=== PATIENT | male | born 1940 | race Caucasian/White ===

== ENCOUNTER 2016-07-11 14:29 | Emergency (ER) | payer OTHER ==
[~2016-07-11] VITALS: Ht 193 cm; Wt 102.1 kg
--- NOTE | 2016-07-11 15:17 | ED GENERAL ADULT ---
History of Present Illness General Chief Complaint: Lower Extremity Problems Stated Complaint: RT LEG DVT Source: patient, family, old records Exam Limitations: no limitations Vital Signs & Intake/Output Vital Signs & Intake/Output Vital Signs Date Time Temp Pulse Resp B/P Pulse O2 O2 Flow FiO2 Ox Delivery Rate 07/12 1006 54 20 128/76 96 Room Air 07/12 0905 54 18 136/77 98 07/12 0616 98.6 55 20 128/75 95 Room Air 07/12 0500 59 16 128/88 96 07/12 0300 96.7 56 18 136/86 96 07/12 0030 97.5 58 18 131/57 96 Room Air 07/11 2220 98.3 57 16 131/72 95 ED Intake and Output 07/12 0000 07/11 1200 Intake Total 0 Output Total Balance 0 Intake, Oral 0 Patient 225 lb Weight Reconcile Medications Amlodipine Besylate 10 MG TABLET 1 TAB PO DAILY HEART (Reported) Aspirin (Aspirin*) 81 MG TAB.CHEW 1 TAB PO DAILY HEART HEALTH (Reported) Ezetimibe (Zetia) 10 MG TABLET 1 TAB PO DAILY CHOLESTEROL (Reported) Famotidine 20 MG TABLET 1 TAB PO BID GI (Reported) Labetalol HCl 200 MG TABLET 1 TAB PO BID HEART (Reported) Lisinopril 40 MG TABLET 1 TAB PO DAILY HEART (Reported) Lovastatin 10 MG TABLET 1 TAB PO DAILY UNKNOWN (Reported) Olmesartan/Hydrochlorothiazide (Benicar Hct 40-25 MG Tablet) 40 MG-25 MG TABLET 1 TAB PO DAILY HEART (Reported) [place]field-3 Acid Ethyl Esters 1 GRAM CAPSULE 1 CAP PO DAILY SUPPLEMENT (Reported) Sildenafil Citrate (Viagra) 100 MG TABLET 1 TAB PO DAILY NEEDED PRN ED ( Reported) 1 hour before sexual activity Triamcinolone Acetonide 0.5 % CREAM..G. 1 SIMÓN TOP TID UNKNOWN (Reported) apply to affected area(s) Triage Note: PT HAD A STENT AT [facility] AND HAD A BLEED IN HIS HEAD. PT FELL May INJURING HIS RIGHT LOWER EXT. PT DENIES PAIN IN THE AREA HOWEVER HE DOES HAVE SWELLING. PT WAS SENT IN BY DR. NÚÑEZ TO CHECK FOR DVT. NIYA Triage Nurses Notes Reviewed? yes HPI: Patient had outpatient ultrasound performed today which showed a DVT in his right femoral down was right popliteal. Back in April patient had a PTCA with stent and the next morning he had an intracerebral hemorrhage while on anticoagulation. Patient was transferred to the neurosurgical ICU. Patient's symptoms resolved on their own and he did not require surgery. Patient has been on aspirin 81 mg since then. Patient states that he had a stent also in 2002 and he required a units of blood after a bleed while on Integrilin. Patient states that he tripped over the sidewalk and twisted his right ankle approximately one month ago and his right ankle was swollen since then. Patient states that the swelling then gradually spread up his leg which led him to see his primary care physician who ordered the ultrasound. he denies any chest pain or shortness of breath. (MARY DANIELSON,ANGLE Carrillo) Allergies Coded Allergies: STATINS ("MUSCLES FEEL LIKE JELLY" - STATINS 02/22/13) clopidogrel (From PLAVIX) (HEMORRHAGE 07/12/16) eptifibatide (UNKNOWN 07/11/16) molindone (UNKNOWN 07/11/16) nalbuphine (UNKNOWN 07/11/16) ticagrelor (From BRILINTA) (HEMMORAGE 07/12/16) (VITA AYALA DO) Past History Travel History Traveled to [place] past 21 day No Medical History Any Pertinent Medical History? see below for history Cardiovascular: CAD, hypertension, hyperlipidemia, STENTS Gastrointestinal: GERD Pneumonia Vaccine: 02/03/08 Surgical History Surgical History: non-contributory Psychosocial History Who do you live with Spouse Services at Home None What is your primary language Uzbek Tobacco Use: Never used ETOH Use: occasional use Illicit Drug Use: denies illicit drug use Family History Hx Contributory? No (MARY DANIELSON,ANGLE Carrillo) Review of Systems Review of Systems Constitutional: Reports: no symptoms. EENTM: Reports: no symptoms. Respiratory: Reports: no symptoms. Cardiovascular: Reports: no symptoms. GI: Reports: no symptoms. Genitourinary: Reports: no symptoms. Musculoskeletal: Reports: see HPI. Skin: Reports: no symptoms. Neurological/Psychological: Reports: no symptoms. Hematologic/Endocrine: Reports: see HPI, bleeding. Immunologic/Allergic: Reports: no symptoms. All Other Systems: Reviewed and Negative (ANGLE HERNANDEZ MD) Physical Exam Physical Exam General Appearance: well developed/nourished, alert, awake Head: atraumatic, normal appearance Eyes: Bilateral: PERRL, EOMI. Ears, Nose, Throat: normal pharynx, normal ENT inspection Neck: normal inspection, supple, full range of motion Respiratory: normal breath sounds, chest non-tender, no respiratory distress, lungs clear Cardiovascular: regular rate/rhythm, normal peripheral pulses Gastrointestinal: normal bowel sounds, soft, non-tender Back: normal inspection, normal range of motion Extremities: pedal edema (RLE) Neurologic/Psych: no motor/sensory deficits, awake, alert, oriented x 3, normal mood/affect Skin: intact, normal color, warm/dry Lymphatic: no anterior cervical mendoza Core Measures ACS in differential dx? No CVA/TIA Diagnosis: No Severe Sepsis Present: No Septic Shock Present: No (MARY DANIELSON,ANGLE Carrillo) Progress Differential Diagnoses I considered the following diagnoses in my evaluation of the patient: [DVT] Plan of Care: Orders Procedure Date/time Status Heart Healthy Diet 07/12 L Active Laboratory Tests 07/11/16 2223: Urine Color YEL, Urine Clarity CLEAR, Urine pH 7.0, Ur Specific Criders 1.020, Urine Protein NEG, Urine Ketones NEG, Urine Nitrite NEG, Urine Bilirubin NEG, Urine Urobilinogen 0.2, Ur Leukocyte Esterase NEG, Ur Microscopic EXAM NOT REQUIRED, Urine Hemoglobin NEG, Urine Glucose NEG Initial ED EKG: none Hand-Off Endorsed To: MELECIO DURAN MD Endorsed Time: 1914 Pending: other (IR) Comments: Discussed with neurosurgery at [facility], they would recommend not to anticoagulate him. Interventional radiology can put a filter in tomorrow morning. (ANGLE HERNANDEZ MD) Hand-Off Endorsed To: VITA AYLAA DO Endorsed Time: 699 Pending: other (IR naresh filter placement) (MELECIO DURAN MD) Departure Departure Disposition: STILL A PATIENT Condition: Stable Clinical Impression Primary Impression: DVT (deep venous thrombosis) Referrals: NIYA DANIELSON,TYRONE (PCP/Family) Departure Forms: Customer Survey General Discharge Information (ANGLE HERNANDEZ MD) Departure Comments 07/12/16 Patient was Signed out to me. He is status post vena caval filter insertion. He is for discharge at 12 PM 07/12/16 12 pm Patient with no complaints. He will follow-up as instructed by the invasive radiologist. He was given a referral to vascular surgery. Ultrasound result was reviewed: IMPRESSION: There is extensive deep vein thrombosis of the right femoral and popliteal veins extending into the calf veins. The critical test result was discussed with Dr. Núñez at 2:20 PM on 07/11/2016 and it was ascertained that the content and the importance of the findings was understood at the time of the direct communication. DICTATED BY: NUPUR GRIFFITH MD DATE/TIME DICTATED:07/11/161416 ONLINE COMMUNICATIONS MANAGER:NEMO DATE/TIME TRANSCRIBED:07/11/161416 CONFIDENTIAL, DO NOT COPY WITHOUT APPROPRIATE AUTHORIZATION. <Electronically signed in Other Vendor System> SIGNED BY: NUPUR GRIFFITH MD 07/11/16 1426 (VITA AYALA DO) Critical Care Note Critical Care Note Critical Care Time: mins: (45 MIN) (MARY DANIELSON,ANGLE Carrillo) Critical Care Time: mins: (45 MIN) (ANGLE HERNANDEZ MD)
[2016-07-11 15:33] LABS: ABSOLUTE BASOPHIL COUNT 0 /CUMM (0.0-0.2); ABSOLUTE EOSINOPHIL COUNT 0.4 /CUMM (0.0-0.7); ABSOLUTE GRANULOCYTE CT 3.5 /CUMM (1.4-6.5); ABSOLUTE LYMPH COUNT 1.8 /CUMM (1.2-3.4); ABSOLUTE MONOCYTE COUNT 0.9 /CUMM (0.10-0.60); BASOPHIL % 0.7 % (0.0-2.0); EOSINOPHIL % 5.6 % (0-5); GRANULOCYTE % 52.8 % (42.2-75.2); HEMATOCRIT 43.5 % (42-52); MEAN CORPUSCULAR HGB 30.2 PG (27.0-31.0); MEAN CORPUSCULAR HGB CONC 32.8 G/DL (33.0-37.0); MEAN CORPUSCULAR VOLUME 92.1 FL (80.0-94.0); MEAN PLATELET VOLUME 9.1 FL (7.4-10.4); PLATELET COUNT 208 /CUMM (130-400); RED BLOOD CELL CT 4.73 /CUMM (4.70-6.10); WHITE BLOOD CELL COUNT 6.6 /CUMM (4.8-10.8)
[2016-07-11 15:37] LABS: PT 11.9 SEC (9.4-12.5); PTT 31 SEC (25-37)
[2016-07-11] MEDS ORDERED: ASPIRIN81 M4 PO (15:38)
[2016-07-11] MEDS ORDERED: ZETIA10 M1 PO (15:38)
[2016-07-11] MEDS ORDERED: AMLODIPINE BESY10 M1 PO (15:38)
[2016-07-11] MEDS ORDERED: FAMOTIDINE20 M1 PO (15:38)
[2016-07-11] MEDS ORDERED: LABETALOL HCL200 M1 PO (15:39)
[2016-07-11] MEDS ORDERED: LISINOPRIL40 M1 PO (15:39)
[2016-07-11] MEDS ORDERED: BENICAR HCT 401 EAC1 PO (15:39)
[2016-07-11] MEDS ORDERED: VIAGRA100 M1 PO (15:40)
[2016-07-11] MEDS ORDERED: LOVASTATIN10 M1 PO (15:40)
[2016-07-11] MEDS ORDERED: OMEGA-3 ACID ETH1 GM PO (15:40)
[2016-07-11] MEDS ORDERED: TRIAMCINOLONE A15 G2 TOP (15:41)
[2016-07-12 10:06] VITALS: BP 128/76
--- NOTE | 2016-07-12 16:06 | ULTRASOUND REPORT ---
EXAMINATION: 1. Inferior Venocavogram 2. Placement of Retrievable IVC filter under sonographic and fluoroscopic guidance CLINICAL INFORMATION: DVT COMPARISON: CT abdomen pelvis 11/29/2005 ACCESS: Right common femoral vein. INTERVENTIONAL RADIOLOGIST: Chay Petersen M.D. SEDATION: Local 1% Lidocaine. Moderate sedation was not required for today's procedure. Ultrasound: Ultrasound was used to identify the right common femoral vein. The right common femoral vein was confirmed to be patent and real time imaging confirmed needle access into the right common femoral vein. An image was saved for permanent recording in PACS. FLUOROSCOPIC TIME: 1.7 minutes CONTRAST: 35 mL Optiray 320 PROCEDURE IN DETAIL: Informed consent was obtained from the patient prior to the procedure. During this process, the procedure and potential alternatives was explained, along with the intended outcome and benefits. The risks of the procedure, as well as the risk of not doing the procedure, were discussed. The patient was given the opportunity to ask questions regarding the procedure and appeared competent to make medical decisions. A signed consent form which documents this discussion was placed in the medical record. The patient was placed on the fluoroscopic table in the procedure room. A final timeout was performed. The right groin was sterilely prepped and draped. Maximum sterile barrier technique was maintained throughout the procedure. A puncture was performed of the right common femoral vein under direct sonographic visualization using a micropuncture kit. The filter introduction sheath was then advanced to the level of the iliac bifurcation over a Bentson wire. An inferior venacavogram was performed which demonstrated a patent, normal caliber IVC without evidence of thrombus or duplication. At this time, the filter introduction sheath was advanced to the level of deployment over the wire. A retrievable IVC filter was then deployed under continuous fluoroscopic visualization. The introduction sheath was removed and hemostasis was obtained at the right femoral venotomy site using manual pressure. A sterile dressing was placed. The patient tolerated the procedure well. There was no evidence complications. IMPRESSION: Successful placement of retrievable IVC filter. PLAN: 1. The patient was stable after the procedure and was transferred back to the emergency room. 2. The IVC filter may be removed if the high risk period for pulmonary embolus ceases or if systemic anticoagulation can administered without risk of complication. 3. The patient will follow up at the [facility] to assess timing of IVC filter removal if clinically appropriate.
== END 2016-07-12 12:07 ==
LOC: ERH 14:29
PROVIDERS: Emergency Medicine
DX: I82.411 Acute embolism and thrombosis of right femoral vein (principal); I82.431 Acute embolism and thrombosis of right popliteal vein; I10 Essential (primary) hypertension; I25.10 Atherosclerotic heart disease of native coronary artery without angina pectoris
CPT/HCPCS: 81003; C1725; C1769

== ENCOUNTER 2017-12-13 15:08 | Emergency (ER) | payer OTHER, MEDICARE ==
[~2017-12-13] VITALS: Ht 193 cm; Wt 113.4 kg
[~2017-12-13 15:08] MED LIST: AMLODIPINE BESY10 M1 PO; ASPIRIN81 M4 PO; BENICAR HCT 401 EAC1 PO; FAMOTIDINE20 M1 PO; LABETALOL HCL200 M1 PO; LISINOPRIL40 M1 PO; LOVASTATIN10 M1 PO; OMEGA-3 ACID ETH1 GM PO; TRIAMCINOLONE A15 G2 TOP; VIAGRA100 M1 PO; ZETIA10 M1 PO
[2017-12-13 15:46] LABS: ABSOLUTE BASOPHIL COUNT 0.1 /CUMM (0.0-0.2); ABSOLUTE EOSINOPHIL COUNT 0.3 /CUMM (0.0-0.7); ABSOLUTE GRANULOCYTE CT 5.9 /CUMM (1.4-6.5); ABSOLUTE LYMPH COUNT 1.6 /CUMM (1.2-3.4); ABSOLUTE MONOCYTE COUNT 1.6 /CUMM (0.10-0.60); BASOPHIL % 0.8 % (0.0-2.0); EOSINOPHIL % 2.9 % (0-5); GRANULOCYTE % 62.7 % (42.2-75.2); HEMATOCRIT 45.5 % (42-52); MEAN CORPUSCULAR HGB 31.3 PG (27.0-31.0); MEAN CORPUSCULAR HGB CONC 33.7 G/DL (33.0-37.0); MEAN CORPUSCULAR VOLUME 92.9 FL (80.0-94.0); MEAN PLATELET VOLUME 8.7 FL (7.4-10.4); PLATELET COUNT 179 /CUMM (130-400); RBC DISTRIBUTION WIDTH 14.4 % (11.5-14.5); WHITE BLOOD CELL COUNT 9.4 /CUMM (4.8-10.8)
--- NOTE | 2017-12-13 17:19 | ULTRASOUND REPORT ---
EXAMINATION: US TRIPLEX LOWER EXTREMITY, RIGHT CLINICAL INFORMATION: Right lower extremity pain and swelling. History of DVT within the right lower extremity. COMPARISON: Ultrasound 12/26/2016 TECHNIQUE: Color-flow triplex imaging with spectral analysis and compression Doppler were performed on the lower extremity. FINDINGS: Respiratory variation, normal compression and augmented flow are noted throughout the lower extremity. The visualized common femoral vein, superficial femoral vein, profunda femoral vein show no evidence of deep venous thrombosis. Interrogation of the right popliteal vein demonstrates partial compression consistent with thrombus within the popliteal vein lumen. Color Doppler flow demonstrates some flow at this level consistent with partial occlusion. The calf veins are difficult to image. Color Doppler evaluation suggests patency of the posterior tibial and peroneal veins. There is no Kahn's cyst. IMPRESSION: Partial occlusion of the right popliteal vein. Otherwise normal right lower extremity ultrasound.
--- NOTE | 2017-12-13 18:37 | CT SCAN REPORT ---
EXAMINATION: CT ANGIOGRAM OF THE CHEST WITH AND WITHOUT CONTRAST (CT PULMONARY ANGIOGRAM FOR PE) CLINICAL INFORMATION: Shortness of breath, recurrent right lower extremity DVT. History of IVC filter removal. COMPARISON: No recent CTA chest for comparison TECHNIQUE: Prior to contrast administration, noncontrast localization images were obtained. Subsequently, multidetector volumetric imaging was performed from the thoracic inlet to below the diaphragms following the administration of 95 mL Optiray 320 intravenous contrast. No contrast reaction reported. Sagittal, coronal, and MIP oblique sagittal reformatted images were obtained on the CT workstation, uploaded to PACS, and reviewed. Total exam dose-length product 661 mGy-cm. FINDINGS: QUALITY OF STUDY/CONTRAST BOLUS: Satisfactory PULMONARY ARTERIES: No central or segmental pulmonary emboli. There may be a tiny chronic filling defect in a subsegmental branch to the left lower lobe (image 307, series 2). THORACIC AORTA: No aneurysm or dissection. LUNG: No focal consolidation, nodules or masses. PLEURA: No pleural effusion or pneumothorax. MEDIASTINUM: Normal heart size. No pericardial effusion. No hilar or mediastinal lymphadenopathy. No evidence of septal bowing or right heart strain. Moderate coronary artery calcification. CHEST WALL/AXILLA: Bilateral symmetric mild to moderate gynecomastia. No abnormal axillary adenopathy. OSSEOUS STRUCTURES: No acute or suspicious osseous abnormality. UPPER ABDOMEN: Small hiatal hernia. Otherwise unremarkable. No reflux of contrast into the hepatic veins to suggest elevated right heart pressures. IMPRESSION: 1. No findings convincing for an acute pulmonary embolism. Probable tiny chronic subsegmental pulmonary embolus in the left lower lobe. 2. No findings of enhancing for an acute cardiopulmonary process. No pneumonia. No effusion. 3. Moderate to severe coronary artery disease. 4. Mild to moderate symmetric chronic mass to. VTE: negative
--- NOTE | 2017-12-13 18:40 | ED GENERAL ADULT ---
History of Present Illness General Chief Complaint: General Adult Stated Complaint: PT THINKS IS BLOOD CLOT IN THE RT LEG Source: patient Exam Limitations: no limitations Vital Signs & Intake/Output Vital Signs & Intake/Output ED Intake and Output 12/14 0000 12/13 1200 Intake Total 0 Output Total Balance 0 Intake, Oral 0 Patient 250 lb Weight Weight Reported by Patient Measurement Method Allergies Coded Allergies: STATINS ("MUSCLES FEEL LIKE JELLY" - STATINS 02/22/13) clopidogrel (From PLAVIX) (HEMORRHAGE 07/12/16) eptifibatide (UNKNOWN 07/11/16) molindone (UNKNOWN 07/11/16) nalbuphine (UNKNOWN 07/11/16) ticagrelor (From BRILINTA) (HEMMORAGE 07/12/16) Reconcile Medications Amlodipine Besylate 10 MG TABLET 1 TAB PO DAILY HEART (Reported) Aspirin (Aspirin*) 81 MG TAB.CHEW 1 TAB PO DAILY HEART HEALTH (Reported) Cephalexin (Keflex) 500 MG CAPSULE 1 CAP PO Q6H CELLULITIS Ezetimibe (Zetia) 10 MG TABLET 1 TAB PO DAILY CHOLESTEROL (Reported) Famotidine 20 MG TABLET 1 TAB PO BID GI (Reported) Labetalol HCl 200 MG TABLET 1 TAB PO BID HEART (Reported) Lisinopril 40 MG TABLET 1 TAB PO DAILY HEART (Reported) Lovastatin 10 MG TABLET 1 TAB PO DAILY UNKNOWN (Reported) Olmesartan/Hydrochlorothiazide (Benicar Hct 40-25 MG Tablet) 40 MG-25 MG TABLET 1 TAB PO DAILY HEART (Reported) [place]-3 Acid Ethyl Esters 1 GRAM CAPSULE 1 CAP PO DAILY SUPPLEMENT (Reported) Sildenafil Citrate (Viagra) 100 MG TABLET 1 TAB PO DAILY NEEDED PRN ED ( Reported) 1 hour before sexual activity Triamcinolone Acetonide 0.5 % CREAM..G. 1 SIMÓN TOP TID UNKNOWN (Reported) apply to affected area(s) Triage Note: PT FROM HOME C/O RIGHT LOWER EXT X20 MINS PRIOR. PT STATES THAT HE NOTICED THE STABBING PAIN OF 2/10 X20 MINS PRIOR TO ARRIVAL. PT HAS A HX OF STENTS PLACED, ALLERGIC TO BLOOD THINNERS, CLOT IN 2016 WITH A FILTER PLACED IN RLE. PTS STATES THAT HIS RIGHT LEG IS NOTICEABLY ALWAYS SWOLLEN WITH A HX OF CELLULITITS WELL. +CHILLS NOTED THIS MORNING BY PT. PTS RLE IS WARM TO TOUCH, SWOLLEN AND RED. Triage Nurses Notes Reviewed? yes Onset: Abrupt Duration: day(s): Timing: single episode today Injury Environment: home Severity: mild, moderate Severity Numbers: 8 No Modifying Factors: none HPI: 77-year-old male history of DVT, coronary disease, hypertension present evaluation of pain swelling and redness in his right lower extremity. 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 He was treated in the past with anticoagulation but developed significant bleeds with 2 different medications. He had a IVC filter in place for several months but it was removed. Patient also has a history of recurrent cellulitis in this extremity. Denies any fever or discharge or trauma. He does report that he had some intermittent shortness of breath today without chest pain hemoptysis. The shortness breath is intermittent. Currently denies shortness of breath. (Landen Pathak) Past History Travel History Traveled to [place] past 21 day No Medical History Any Pertinent Medical History? see below for history Cardiovascular: CAD, hypertension, hyperlipidemia, STENTS Gastrointestinal: GERD Surgical History Surgical History: non-contributory Psychosocial History Who do you live with Spouse Services at Home None What is your primary language Italian Tobacco Use: Quit >30 days ago Family History Hx Contributory? No (Landen Pathak) Review of Systems Review of Systems Constitutional: Reports: no symptoms. EENTM: Reports: no symptoms. Respiratory: Reports: no symptoms. Cardiovascular: Reports: edema. GI: Reports: no symptoms. Genitourinary: Reports: no symptoms. Musculoskeletal: Reports: no symptoms. Skin: Reports: see HPI, erythema. Neurological/Psychological: Reports: no symptoms. Hematologic/Endocrine: Reports: no symptoms. Immunologic/Allergic: Reports: no symptoms. All Other Systems: Reviewed and Negative (Landen Pathak) Physical Exam Physical Exam General Appearance: well developed/nourished, no apparent distress, alert, awake Head: atraumatic, normal appearance Eyes: Bilateral: normal appearance, EOMI. Ears, Nose, Throat: hearing grossly normal Neck: normal inspection, supple, full range of motion Respiratory: normal breath sounds, chest non-tender, no respiratory distress, lungs clear Cardiovascular: regular rate/rhythm, normal peripheral pulses Peripheral Pulses: 2+ radial (R), 2+ radial (L), 1+ tibialis posterior (R), 1+ tibialis posterior ( L), 1+ dorsalis pedis (R), 1+ dorsalis pedis (L) Gastrointestinal: soft, non-tender Back: normal inspection, normal range of motion Extremities: THE RIGHT LOWER EXTREMITY IS SWOLLEN COMPARED TO THE LEFT. tHERE IS ERYTHEMA PRESENT FROM THE ANKLE TO THE MID LANGE. eDEMA IS NONPITTING. fULL RANGE OF MOTION IS INTACT AND NEUROVASCULAR SUPPLY IS INTACT PATIENT IS ABLE TO WALK AND BEAR WEIGHT Neurologic/Psych: no motor/sensory deficits, awake, alert, oriented x 3, normal gait, normal mood/affect Skin: intact, normal color, warm/dry Core Measures ACS in differential dx? No CVA/TIA Diagnosis: No Sepsis Present: No Sepsis Focused Exam Completed? No (Landen Pathak) Progress Differential Diagnoses I considered the following diagnoses in my evaluation of the patient: [DVT, cellulitis, PE, acute coronary syndrome] Plan of Care: Laboratory Tests 12/13/171940: Troponin I < 0.01 Patient is here for evaluation of swelling to the right lower extremity. His history of chronic DVT in this leg. He is not on anticoagulation due to history of bleeding. There is evidence of cellulitis the right lower extremity which this patient has had in the past. He also reports intermittent shortness of breath today. Labs are ordered ultrasound of the leg ordered CTA of the chest to rule out PE. Ultrasound is positive for a partially obstructing clot in the popliteal vein. Spoke with Dr. Pham from vascular feel this is likely chronic and the patient does not require anticoagulation or admission for this. Blood work overall is unremarkable. The CTA is negative for acute clots or pneumonia. Patient is medicated here with Unasyn a repeat EKG and troponin will be obtained. Patient did spike a low-grade temperature. Patient suddenly reported that he did not want to stay for the repeat EKG and troponin results. He requested immediate discharge it is unclear why he wants this. He suddenly became agitated. Patient signed AGAINST MEDICAL ADVICE form will be discharged on cephalexin. Discussed return precautions and advised to follow up with his vascular on Friday. Discussed return precautions in detail case discussed Dr. Bailey agrees Diagnostic Imaging: Viewed by Me: CT Scan. Discussed w/RAD: CT Scan. Radiology Impression: PATIENT: PHILLIP DICKSON PRESENT AGE: 77 PATIENT ACCOUNT NO: [id number] : 42 LOCATION: [facility] ORDERING PHYSICIAN: Landen BERTRAND SERVICE DATE: 12/13/17 EXAM TYPE: CAT - CTA CHEST-PULMONARY EMBOLISM EXAMINATION: CT ANGIOGRAM OF THE CHEST WITH AND WITHOUT CONTRAST (CT PULMONARY ANGIOGRAM FOR PE) CLINICAL INFORMATION: Shortness of breath, recurrent right lower extremity DVT. History of IVC filter removal. COMPARISON: No recent CTA chest for comparison TECHNIQUE: Prior to contrast administration, noncontrast localization images were obtained. Subsequently, multidetector volumetric imaging was performed from the thoracic inlet to below the diaphragms following the administration of 95 mL Optiray 320 intravenous contrast. No contrast reaction reported. Sagittal, coronal, and MIP oblique sagittal reformatted images were obtained on the CT workstation, uploaded to PACS, and reviewed. Total exam dose-length product 661 mGy-cm. FINDINGS: QUALITY OF STUDY/CONTRAST BOLUS: Satisfactory PULMONARY ARTERIES: No central or segmental pulmonary emboli. There may be a tiny chronic filling defect in a subsegmental branch to the left lower lobe (image 307, series 2). THORACIC AORTA : No aneurysm or dissection. LUNG: No focal consolidation, nodules or masses. PLEURA: No pleural effusion or pneumothorax. MEDIASTINUM: Normal heart size. No pericardial effusion. No hilar or mediastinal lymphadenopathy. No evidence of septal bowing or right heart strain. Moderate coronary artery calcification. CHEST WALL/AXILLA: Bilateral symmetric mild to moderate gynecomastia. No abnormal axillary adenopathy. OSSEOUS STRUCTURES: No acute or suspicious osseous abnormality. UPPER ABDOMEN: Small hiatal hernia. Otherwise unremarkable. No reflux of contrast into the hepatic veins to suggest elevated right heart pressures. IMPRESSION: 1. No findings convincing for an acute pulmonary embolism. Probable tiny chronic subsegmental pulmonary embolus in the left lower lobe. 2. No findings of enhancing for an acute cardiopulmonary process. No pneumonia. No effusion. 3. Moderate to severe coronary artery disease. 4. Mild to moderate symmetric chronic mass to. VTE: negative DICTATED BY: Nessa Vyas MD DATE/TIME DICTATED:12/13/171819 ROTARY DUMP OPERATOR:NEMO DATE/TIME TRANSCRIBED:12/13/171819 CONFIDENTIAL, DO NOT COPY WITHOUT APPROPRIATE AUTHORIZATION. <Electronically signed in Other Vendor System> SIGNED BY: Nessa Vyas MD 12/13/17 897 Initial ED EKG: normal sinus rhythm, no ST T wave changes Prior EKG: unchanged (Landen Pathak) Differential Diagnoses I considered the following diagnoses in my evaluation of the patient: (Sudhakar Jimenez DO) Departure Departure Disposition: LEFT AGAINST MEDICAL ADVICE Condition: Stable Clinical Impression Primary Impression: Cellulitis Qualifiers: Site of cellulitis: extremity Site of cellulitis of extremity: lower extremity Laterality: right Qualified Code: L03.115 - Cellulitis of right lower limb Referrals: Franca DANIELSON,Yara (PCP/Family) Additional Instructions: You are leaving AGAINST MEDICAL ADVICE before evaluation is complete. Premature discharge could result in negative health effects including permanent disability or . Take antibiotics as directed for the full course. Follow-up on Friday with Dr. Pham vascular surgeon to review all result of today's visit. If the swelling gets worse redness spreads you have fever or any other concerns return immediately. Departure Forms: Customer Survey General Discharge Information Prescriptions: Current Visit Scripts Cephalexin (Keflex) 1 CAP PO Q6H #40 CAP (Landen Pathak) Departure Comments I saw and personally evaluated the patient and I agree with the PAs evaluation. The patient insisted upon leaving the emergency department shortly after my arrival. He is being worked up for lower extremity edema and admitted to difficulty breathing .Ultrasound showed nonocclusive clot, he was also pending serial troponins. His ultrasound results were discussed with vascular surgery. No anticoagulation was advised. The patient was instructed to follow-up with his primary care doctor as soon as possible or return to the emergency department if worse. PA/AQUATICS COORDINATOR Co-Sign Statement Statement: ED Attending supervision documentation- [x] I saw and evaluated the patient. I have also reviewed all the pertinent lab results and diagnostic results. I agree with the findings and the plan of care as documented in the PA's/AQUATICS COORDINATOR's documentation. [] I have reviewed the ED Record and agree with the PA's/AQUATICS COORDINATOR's documentation. [] Additions or exceptions (if any) to the PAs/AQUATICS COORDINATOR's note and plan are summarized below: [] (Sudhakar Jimenez DO) Critical Care Note Critical Care Note Critical Care Time: non-applicable (Landen Pathak)
[2017-12-13 19:39] VITALS: BP 138/80
[2017-12-13] MEDS ORDERED: KEFLEX500 M1 PO (20:29)
== END 2017-12-13 20:28 | disposition left against medical advice (07) ==
LOC: ERH 15:08
PROVIDERS: Physician Assistant Medical
DX: L03.115 Cellulitis of right lower limb (principal); I25.10 Atherosclerotic heart disease of native coronary artery without angina pectoris; I10 Essential (primary) hypertension; Z87.891 Personal history of nicotine dependence
CPT/HCPCS: 93005; 93010; 96374